=== PATIENT | female | born 1945 | race Caucasian/White ===

== ENCOUNTER 2025-01-04 07:07 | Day surgery (SDC) | payer MEDICARE, OTHER ==
[~2025-01-04 07:07] MED LIST: Sodium Chloride 0.9% 10 ML Syringe FLUSH PRN
[2025-01-04] MEDS ORDERED: Propofol 200 MG/20 ML SDV IV ONE (07:08)
[2025-01-04 07:25] VITALS: BP 127/76; PULSE 83
[2025-01-04] MEDS: Lactated Ringers 1,000 ML IV SCH (07:45)
== END 2025-01-04 09:59 | disposition home or self-care (01) ==
LOC: FB.SDS 07:07
PROVIDERS: ATTEND Surgery
DX: Z12.11 Encounter for screening for malignant neoplasm of colon (principal); D12.6 Benign neoplasm of colon, unspecified; K57.30 Diverticulosis of large intestine without perforation or abscess without bleeding; Z79.82 Long term (current) use of aspirin; Z79.899 Other long term (current) drug therapy; Z79.890 Hormone replacement therapy; Z87.891 Personal history of nicotine dependence; Z86.0100 Personal history of colon polyps, unspecified
CPT/HCPCS: 00811; 45385; 88305; 99100; A9270; J2003; J2704; J7120